=== PATIENT | male | born 1990 | race Caucasian/White ===

== ENCOUNTER 2020-04-06 16:34 | Inpatient (IN) | payer OTHER ==
[2020-04-06 18:39] VITALS: BMI 26.6
[2020-04-06] MEDS ORDERED: BISMUTH SUBSALICYLATE 524 MG/30 ML UD PO PRN (20:05)
[2020-04-06] MEDS ORDERED: ACETAMINOPHEN 325 MG TABLET (FP) PO PRN (20:05)
[2020-04-06] MEDS ORDERED: NALOXONE HCL 0.4 MG/ML VIAL IM PRN (20:05)
[2020-04-06] MEDS ORDERED: chlordiazePOXIDE HCL 25 MG CAPSULE PO PRN (20:05)
[2020-04-06] MEDS ORDERED: MAG HYDROX/AL HYDROX/SIMETH 30 ML UNIT-DOSE CUP PO PRN (20:05)
[2020-04-06] MEDS ORDERED: IBUPROFEN 400 MG TABLET (FP) PO PRN (20:05)
[2020-04-06] MEDS ORDERED: MENTHOL/PHENOL 1 EACH UD MM PRN (20:05)
[2020-04-06] MEDS ORDERED: MAGNESIUM CITRATE 300 ML BOTTLE PO PRN (20:05)
[2020-04-06] MEDS ORDERED: MAGNESIUM HYDROX 2400MG/30ML ORAL SUSPENSION 30 ML CUP PO PRN (20:05)
[2020-04-06] MEDS ORDERED: METHADONE HCL 10 MG TABLET (FOR DETOX USE ONLY) PO ONE (20:05)
[2020-04-06] MEDS ORDERED: BACITRACIN 0.9 GM PACKET TP SCH ×2 (20:15→20:18)
[2020-04-06] MEDS: BACITRACIN 0.9 GM PACKET TP SCH (21:34)
[2020-04-06] MEDS: THIAMINE HCL 100 MG TABLET (FP) PO SCH (21:35)
[2020-04-06] MEDS: MELATONIN 5 MG TABLETS PO SCH (21:35)
[2020-04-06] MEDS: chlordiazePOXIDE HCL 25 MG CAPSULE PO SCH (22:05)
[2020-04-07] MEDS: chlordiazePOXIDE HCL 25 MG CAPSULE PO SCH ×4 (05:12→22:05)
[2020-04-07] MEDS: NICOTINE 7 MG/24 HOURS TOPICAL PATCH TD SCH (09:11)
[2020-04-07] MEDS: NICOTINE POLACRILEX 2 MG GUM BUC PRN ×2 (09:12→15:03)
[2020-04-07] MEDS ORDERED: METHADONE HCL 10 MG TABLET (FOR DETOX USE ONLY) ONE (09:36)
[2020-04-07] MEDS ORDERED: METHADONE HCL 5 MG TABLET (FOR DETOX USE ONLY) ONE (09:37)
[2020-04-07] MEDS ORDERED: METHADONE (DETOX) 20 MG, METHADONE (DETOX) 5 MG PO ONE (10:00)
[2020-04-07] MEDS: PRENATAL VITAMINS W/ FOLIC ACID TABLET (FP) PO SCH (10:23)
[2020-04-07] MEDS: cloNIDine HCL 0.1 MG TABLET PO PRN (10:26)
[2020-04-07] MEDS: BACITRACIN 0.9 GM PACKET TP SCH (10:33)
[2020-04-07] MEDS ORDERED: MIRTAZAPINE 15 MG TABLET (FP) ONE (21:33)
[2020-04-07] MEDS ORDERED: MIRTAZAPINE 30 MG TABLET PO SCH (22:00)
[2020-04-07] MEDS: MIRTAZAPINE 30 MG TABLET PO SCH (22:04)
[2020-04-07] MEDS: THIAMINE HCL 100 MG TABLET (FP) PO SCH (22:04)
[2020-04-07] MEDS: MELATONIN 5 MG TABLETS PO SCH (22:04)
[2020-04-08] MEDS: chlordiazePOXIDE HCL 25 MG CAPSULE PO SCH ×4 (05:07→22:28)
[2020-04-08] MEDS: ACETAMINOPHEN 325 MG TABLET (FP) PO PRN (05:08)
[2020-04-08] MEDS ORDERED: METHADONE HCL 10 MG TABLET (FOR DETOX USE ONLY) PO ONE (10:00)
[2020-04-08] MEDS: PRENATAL VITAMINS W/ FOLIC ACID TABLET (FP) PO SCH (10:16)
[2020-04-08] MEDS: BACITRACIN 0.9 GM PACKET TP SCH (10:16)
[2020-04-08] MEDS: NICOTINE 7 MG/24 HOURS TOPICAL PATCH TD SCH (10:21)
[2020-04-08] MEDS: cloNIDine HCL 0.1 MG TABLET PO PRN (14:29)
[2020-04-08] MEDS: NICOTINE POLACRILEX 2 MG GUM BUC PRN ×2 (15:43→18:45)
[2020-04-08 16:09] LABS: BASO % 0.6 % (0-2.0); HEMATOCRIT 40.6 % (35.4-49); HEMOGLOBIN 13.4 GM/dL (11.7-16.9); LYMPH % 42.5 % (8-40); MCH 30.6 pg (25.7-33.7); MEAN CELL VOLUME 92.9 fl (80-96); MEAN PLT VOLUME 8.5 fl (7.5-11.1); MONO % 9.4 % (3.8-10.2); NEUT % 36.5 % (42.8-82.8); PLATELET COUNT 478 K/MM3 (134-434); RBC 4.37 M/mm3 (4.00-5.60); RDW 13.9 % (11.9-15.9); WHITE BLOOD COUNT 8.9 K/mm3 (4.0-10.0)
[2020-04-08] MEDS: METHOCARBAMOL 500 MG TABLET PO PRN (18:04)
[2020-04-08] MEDS: THIAMINE HCL 100 MG TABLET (FP) PO SCH (22:29)
[2020-04-08] MEDS: MELATONIN 5 MG TABLETS PO SCH (22:29)
[2020-04-08] MEDS: MIRTAZAPINE 30 MG TABLET PO SCH (22:29)
[2020-04-09] MEDS ORDERED: chlordiazePOXIDE HCL 10 MG CAPSULE PO PRN
[2020-04-09] MEDS: chlordiazePOXIDE HCL 10 MG CAPSULE PO SCH ×4 (05:23→22:05)
[2020-04-09] MEDS: METHOCARBAMOL 500 MG TABLET PO PRN ×2 (09:07→18:01)
[2020-04-09] MEDS ORDERED: METHADONE HCL 10 MG TABLET (FOR DETOX USE ONLY) ONE (09:13)
[2020-04-09] MEDS ORDERED: METHADONE HCL 5 MG TABLET (FOR DETOX USE ONLY) ONE (09:14)
[2020-04-09] MEDS ORDERED: METHADONE (DETOX) 10 MG, METHADONE (DETOX) 5 MG PO ONE (10:00)
[2020-04-09] MEDS: PRENATAL VITAMINS W/ FOLIC ACID TABLET (FP) PO SCH (10:21)
[2020-04-09] MEDS: BACITRACIN 0.9 GM PACKET TP SCH (10:23)
[2020-04-09] MEDS: NICOTINE 7 MG/24 HOURS TOPICAL PATCH TD SCH (10:23)
[2020-04-09] MEDS: ACETAMINOPHEN 325 MG TABLET (FP) PO PRN ×2 (12:06→18:01)
[2020-04-09] MEDS: LIDOCAINE 5% TOPICAL PATCH TP SCH (12:07)
[2020-04-09] MEDS ORDERED: MIRTAZAPINE 15 MG TABLET (FP) ONE (21:28)
[2020-04-09] MEDS: MELATONIN 5 MG TABLETS PO SCH (22:04)
[2020-04-09] MEDS: THIAMINE HCL 100 MG TABLET (FP) PO SCH (22:04)
[2020-04-09] MEDS: MIRTAZAPINE 30 MG TABLET PO SCH (22:04)
[2020-04-09] MEDS: LIDOCAINE PATCH REMOVAL MC SCH (22:05)
[2020-04-10] MEDS: ACETAMINOPHEN 325 MG TABLET (FP) PO PRN ×3 (01:51→15:18)
[2020-04-10] MEDS: METHOCARBAMOL 500 MG TABLET PO PRN ×2 (01:51→14:29)
[2020-04-10] MEDS: chlordiazePOXIDE HCL 10 MG CAPSULE PO SCH ×2 (06:28→18:00)
[2020-04-10] MEDS ORDERED: METHADONE HCL 10 MG TABLET (FOR DETOX USE ONLY) PO ONE (10:00)
[2020-04-10] MEDS: BACITRACIN 0.9 GM PACKET TP SCH (10:15)
[2020-04-10] MEDS: PRENATAL VITAMINS W/ FOLIC ACID TABLET (FP) PO SCH (10:15)
[2020-04-10] MEDS: LIDOCAINE 5% TOPICAL PATCH TP SCH (10:16)
[2020-04-10] MEDS: NICOTINE 7 MG/24 HOURS TOPICAL PATCH TD SCH (10:19)
[2020-04-10 13:23] LABS: HEMATOCRIT 41.3 % (35.4-49); MCH 31.4 pg (25.7-33.7); MCHC 33.8 g/dl (32.0-35.9); MEAN CELL VOLUME 92.9 fl (80-96); MEAN PLT VOLUME 7.8 fl (7.5-11.1); PLATELET COUNT 448 K/MM3 (134-434); RBC 4.44 M/mm3 (4.00-5.60); RDW 13.2 % (11.9-15.9)
[2020-04-10] MEDS: NICOTINE POLACRILEX 2 MG GUM BUC PRN (14:29)
[2020-04-10] MEDS ORDERED: MIRTAZAPINE 15 MG TABLET (FP) ONE (20:39)
[2020-04-10] MEDS: THIAMINE HCL 100 MG TABLET (FP) PO SCH (22:26)
[2020-04-10] MEDS: MELATONIN 5 MG TABLETS PO SCH (22:26)
[2020-04-10] MEDS: MIRTAZAPINE 30 MG TABLET PO SCH (22:28)
[2020-04-10] MEDS: LIDOCAINE PATCH REMOVAL MC SCH (22:28)
[2020-04-11] MEDS: ACETAMINOPHEN 325 MG TABLET (FP) PO PRN (03:23)
[2020-04-11] MEDS: METHOCARBAMOL 500 MG TABLET PO PRN (03:24)
[2020-04-11] MEDS ORDERED: chlordiazePOXIDE HCL 10 MG CAPSULE PO ONE (05:00)
[2020-04-11] MEDS ORDERED: METHADONE HCL 5 MG TABLET (FOR DETOX USE ONLY) PO ONE (06:00)
[2020-04-11] MEDS: PRENATAL VITAMINS W/ FOLIC ACID TABLET (FP) PO SCH (09:52)
[2020-04-11] MEDS: BACITRACIN 0.9 GM PACKET TP SCH (09:52)
[2020-04-11] MEDS: LIDOCAINE 5% TOPICAL PATCH TP SCH (09:54)
[2020-04-11] MEDS: NICOTINE 7 MG/24 HOURS TOPICAL PATCH TD SCH (09:54)
[2020-04-11 13:42] VITALS: BP 129/79; PULSE 94; TEMP 97.5
== END 2020-04-11 13:26 | disposition home or self-care (01) | DRG 773 ==
LOC: YASAS 16:34 → Y3N 20:08
PROVIDERS: ADMIT Allergy & Immunology; ATTEND Allergy & Immunology
PROC: HZ2ZZZZ Detoxification Services for Substance Abuse Treatment (ICD-10-PCS; principal; 2020-04-06)
DX: F10.230 Alcohol dependence with withdrawal, uncomplicated (principal); F11.20 Opioid dependence, uncomplicated; F14.20 Cocaine dependence, uncomplicated; F17.210 Nicotine dependence, cigarettes, uncomplicated; F19.282 Other psychoactive substance dependence with psychoactive substance-induced sleep disorder; F19.24 Other psychoactive substance dependence with psychoactive substance-induced mood disorder; F41.8 Other specified anxiety disorders; F90.9 Attention-deficit hyperactivity disorder, unspecified type; D47.3 Essential (hemorrhagic) thrombocythemia; R03.0 Elevated blood-pressure reading, without diagnosis of hypertension; Z87.09 Personal history of other diseases of the respiratory system; Z56.0 Unemployment, unspecified; Z59.0 Homelessness
CPT/HCPCS: 36415; 71046-TC-FY; 73610-TC-RT-FY; 73630-TC-RT-FY; 80053; 83605; 85025; 85027; 85610; 85730; 86780; 87040; 93005; 93010; C9803; J0735; J0875; U0003